=== PATIENT | female | born 1955 | race Caucasian/White ===

== ENCOUNTER 2024-03-16 14:53 | Outpatient (AMB) | payer MEDICARE, SELFPAY ==
--- NOTE | 2024-03-16 14:58 | A.OFFPC_ITS ---
Vital Signs 03/16/24 15:09 Height 5 ft 2.28 in Weight 135 lb 8 oz BMI 24.6 BP 114/70 Blood Pressure Location Lt brachial Position Sitting Pulse Source Pulse Oximeter Temp 97.9 F Temp Source Oral Pulse Oximetry (%) 94 Oxygen Delivery Method Room Air Intake Visit Reasons: Establish Care transfer from [facility] Intake Note: new patient visit Weigh Machine Operator Required: No Allergies No Known Allergies Allergy (Verified 03/16/24 15:02) Medication List - Last Reconciled 03/16/24 by EMANI Garland albuterol sulfate 90 mcg/actuation inhalation ezetimibe 10 mg PO DAILY levocetirizine (Xyzal) 5 mg PO DAILY levothyroxine 75 mcg PO DAILY multivitamin 1 tab PO QAM tiotropium bromide 2.5 mcg/actuation (Spiriva Respimat) 2 puffs inhalation DAILY triamcinolone acetonide (Nasacort) 2 sprays intranasal DAILY Tobacco use date assessed: 03/16/24 Fall risk assessment: 2 + Falls in past year Dental Screening Dental Screen Date: 03/16/24 Did you have a dental visit in the last 12 months?: Yes Did you have a dental problem in the last 6 months where you did not have access to dental care?: No Was dental information given to patient?: Patient has dentist HPI HPI Comments History of Present Illness Details 68-year-old female with a past medical h istory of COPD, hyperlipidemia and hypothyroidism presenting to transfer care from [facility] primary care. She is accompanied by her daughter, Cheyanne. Hypothyroidism treated with levothyroxine 75 mcg once daily. She is compliant. Hyperlipidemia-she stopped taking the statin I prescribed at the last practice. She said atorvastatin caused myalgias, and she was concerned rosuvastatin contributed to a COPD flare. She did not want to take another statin. We had discussed her elevated ASCVD risk score. She was agreeable to trying Zetia. She denies issues on this medication. When I saw the patient on January 27 at [facility] she had a tick bite. She was treated with doxycycline. She did not have lab work there for Lyme screening, and she needs the order placed anew. COPD-she was treated for an exacerbation this year with azithromycin and prednisone. She was diagnosed with COPD [place] She recalls having a pulmonary function test and a low-dose CT scan. Since relocating to [place] she endorses more cough, chest congestion, wheezing and shortness of breath. She has not taken her albuterol very frequently. She has chronic rhinitis which is treated with Xyzal and Nasacort nose spray. She quit smoking 10 years ago. She denies hemoptysis or chest abe n. The patient says she was seen at urgent care 2 weeks ago for burning with urination and pelvic pressure. She was told there were leukocytes in her urine, but the culture was negative. Since then the burning significantly improved. She still has pelvic pressure. She had a large ovarian cyst removed years ago. She does not follow with gynecology. She denies vaginal bleeding and discharge. No vomiting, nausea, syncope. Patient says she has had several times over the past couple of years that she thought she had a UTI because of these symptoms, but she tested negative. Sometimes it feels like her bladder is prolapsing. [facility] Medical History (Updated 03/16/24 @ 16:06 by EMANI Garland) Pelvic pressure in female Chronic rhinitis Snoring COPD (chronic obstructive pulmonary disease) Hypothyroidism Hyperlipidemia Surgical History (Updated 03/16/24 @ 15:11 by Little Cheatham CMA) H/O ovarian cystectomy Family History (Updated 03/16/24 @ 15:14 by Little Cheatham CMA) Father Brain cancer Brother Suicide Sister COPD (chronic obstructive pulmonary disease) Other Memory deficit after nontraumatic subarachnoid hemorrhage Social History Housing: House Patient Tobacco Use Status: Former Tobacco user Tobacco use type: Cigarette Cigarette Packs Per Day: 1 Cigarettes Per Day: 20 Years Smoked: 20 e-Cigarette/Vaping Use: Never Used Second Hand Smoke Exposure: Yes service: No Current occupational status: retired Cognitive needs: No Hearing needs: No Vision needs: No Questionnaire PHQ-9 Over the last 2 weeks, how often have you been bothered by any of the following problems? 1. Little interest or pleasure in doing things: not at all 2. Feeling down, depressed, or hopeless: not at all 3. Trouble falling or staying asleep, or sleeping too much: not at all 4. Feeling tired or having little energy: not at all 5. Poor appetite or overeating: not at all 6. Feeling bad about yourself - or that you are a failure or have let yourself or your family down: not at all 7. Trouble concentrating on things, such as reading the newspaper or watching television: not at all 8. Moving or speaking so slowly that other people could have noticed. Or the opposite - being so fidgety or restless that you have been moving around a lot more than usual: not at all 9. Thoughts that you would be better off or of hurting yourself in some way: not at all Total score: 0 Depression Screening Interpretation: Negative Depression Screening Done: Yes 42285 - PHQ-9 Billing: Yes Source: Developed by Drs. Max Bridges, Tenisha Humphreys, Juan Ramon Moore and colleagues, with an educational zora from [employer]. AUDIT C Alcohol Use Questionnaire (AUDIT-C) 1. How often do you have a drink containing alcohol?: Never 3. How often do you have six or more drinks on one occasion?: Never Total Score: 0 Score Reviewed/Action Taken: No JOHN-7 AMB Questionnaire JOHN-7 Date JOHN - 7 assessed: 03/16/24 Feeling nervous, anxious, or on edge: 0 = Not at all Not being able to stop or control worryin = Not at all Worrying too much about different things: 0 = Not at all Trouble relaxin = Not at all Being so restless that it is hard to sit still: 0 = Not at all Becoming easily annoyed or irritable: 0 = Not at all Feeling afraid as if something awful might happen: 0 = Not at all Total JOHN-7 score (0-4 normal; 5-9 mild; 10-14 moderate; 15-21 severe): 0 Source: Developed by Drs. Max Bridges, Tenisha Humphreys, Juan Ramon Moore and colleagues, with an educational zora from [employer]. JOHN-7 Assessment Billing JOHN-7 Assessment Tool: JOHN-7 Assessment 97281 Physical exam (Primary Care) Vital Signs: Last Vital Signs Temp 97.9 F 03/16/24 15:09 BP 114/70 03/16/24 15:09 Pulse Ox 94 03/16/24 15:09 Oxygen Delivery Method Room Air 03/16/24 15:09 BMI result Body Mass Index 23.0 Tobacco/Smoking Status: Tobacco use Status Tobacco use date assessed 03/16/24 03/16/24 15:12 Patient Tobacco Use Status Former Tobacco user 03/16/24 15:12 Tobacco use type Cigarette 03/16/24 15:12 e-Cigarette/Vaping Use Never Used 03/16/24 15:12 Depression Screening Interpretation: Negative Const Other: Constitutional: Alert, in no distress. Head: Normocephalic. Eyes: Pupils are equal, round and reactive to light. Extraocular muscles intact. Ear, Nose and Throat: Canals clear. TMs normal. No nasal discharge. No oral lesions. Neck: Supple, Full range of motion. No lymphadenopathy. Respiratory: Clear to auscultation. Cardiovascular: S1 S2 regular. No murmurs. Gastrointestinal: Abdomen soft, non-tender, non-distended. Normal bowel sounds. No palpable masses. Genitourinary: No costovertebral angle tenderness. Mild pelvic discomfort with palpation. Extremities: Warm and well perfused. No clubbing, cyanosis or edema. Assessment and Plan Assessment & Plan (1) Hypothyroidism: Code(s): E03.9 - Hypothyroidism, unspecified Qualifiers: Hypothyroidism type: acquired Qualified Code(s): E03.9 - Hypothyroidism, unspecified Plan: Continue levothyroxine. Check TSH. (2) Hyperlipidemia: Code(s): E78.5 - Hyperlipidemia, unspecified Qualifiers: Hyperlipidemia type: pure hypercholesterolemia Qualified Code(s): E78.00 - Pure hypercholesterolemia, unspecified Plan: She did not tolerate statins though reaction to rosuvastatin is questionable. She did not want to attempt another statin. She will continue Zetia. Check lipid profile. Recommended the Mediterranean diet. (3) COPD (chronic obstructive pulmonary disease): Code(s): J44.9 - Chronic obstructive pulmonary disease, unspecified Plan: Referred to pulmonology. Chest CT ordered. Continue albuterol as needed. Start Spiriva 2 inhalations daily. (4) Pelvic pressure in female: Code(s): R10.2 - Pelvic and perineal pain Plan: Ordered pelvic ultrasound. Referred to Gynecology. They will call Dr. Palmer's office today. Warning signs warranting ER evaluation reviewed. Orders: Orders 2 Alanine Aminotransferase Today E78.5 - Hyperlipidemia, unspecified Aspartate Amino Transferase Today E78.5 - Hyperlipidemia, unspecified TSH reflex Free T4 Today E03.9 - Hypothyroidism, unspecified US OB pelvic and transvaginal Today R10.2 - Pelvic and perineal pain Lipid Panel Today E78.5 - Hyperlipidemia, unspecified Lyme IgG/IgM w/reflex to WB Today W57.XXXA - Bitten or stung by nonvenomous insect and other nonvenomous arthropods, initial encounter CT chest wo con - High Res Today J44.9 - Chronic obstructive pulmonary disease, unspecified, R05.3 - Chronic cough Referrals LINK TRAINER OPERATOR Referral R10.2 - Pelvic and perineal pain Pulmonology Referral J44.9 - Chronic obstructive pulmonary disease, unspecified Medications: New tiotropium bromide 2.5 mcg/actuation (Spiriva Respimat) 2 puffs inhalation DAILY 4 grams 5RF Coding Level of Care Code Est Pt Level 4 (41949) Complex EM visit Add On G2211 Diagnoses Acquired hypothyroidism E03.9 Hypothyroidism type: acquired Pure hypercholesterolemia E78.00 Hyperlipidemia type: pure hypercholesterolemia COPD (chronic obstructive pulmonary disease) J44.9 Pelvic pressure in female R10.2 Additional Codes JOHN-7 Assessment Billing - JOHN-7 Assessment Tool: JOHN-7 Assessment [id number] ([id number])
[2024-03-16 15:09] VITALS: BP 114/70; TEMP 36.6; O2SAT 94; BMI 24.6
== END 2024-03-16 15:52 | disposition home or self-care (01) ==
PROVIDERS: PCP Physician Assistant Medical; Visit Provider Physician Assistant Medical
DX: E03.9 Hypothyroidism, unspecified (principal); E78.00 Pure hypercholesterolemia, unspecified; J44.9 Chronic obstructive pulmonary disease, unspecified; R10.2 Pelvic and perineal pain
CPT/HCPCS: 99214; G2211

== ENCOUNTER 2024-06-11 14:19 | Outpatient (AMB) | payer MEDICARE, SELFPAY ==
--- NOTE | 2024-06-11 14:31 | A.OFFPC_ITS ---
Vital Signs 06/11/24 14:34 Height 5 ft 2.25 in Weight 135 lb 4 oz BMI 24.5 BP 108/70 Blood Pressure Location Rt brachial Position Sitting Pulse 76 Pulse Source Pulse Oximeter Pulse Oximetry (%) 96 Oxygen Delivery Method Room Air Intake Visit Reasons: med review/annual Intake Note: Patient is here for her annual exam. Patient reports she has had testing completed- labs, lung scan and ultrasound at [facility]. Patient is accompanied by her daughter today who reports she has stomach concerns as well. Electronic Prepress System Operator Required: No Accompanied by: Daughter Allergies No Known Allergies Allergy (Verified 06/11/24 14:40) Tobacco use date assessed: 03/16/24 Fall risk assessment: 1 Fall in past year Last assessed Fall Risk: 06/11/24 Dental Screening Dental Screen Date: 03/16/24 HPI HPI Comments History of Present Illness Details 68-year-old female with a past medical h istory of COPD, hyperlipidemia and hypothyroidism presents for annual physical. She is accompanied by her daughter, Diana, for part of the visit. Hypothyroidism treated with levothyroxine 75 mcg once daily. She is compliant. Hyperlipidemia-she stopped taking the statin I prescribed at the last practice. She said atorvastatin caused myalgias, and she was concerned rosuvastatin contributed to a COPD flare. She did not want to take another statin. We had discussed her elevated ASCVD risk score. She is on Zetia. She had labs done externally that we reviewed previously. COPD-she was treated for an exacerbation this year with azithromycin and prednisone. She was diagnosed with COPD [place]. She is not taking Incruse. She does not like the powder formulation, and she took it for a few weeks and did not feel a difference. She has not taken her albuterol very frequently. She has chronic rhinitis which is treated with Xyzal and Nasacort nose spray. She quit smoking 10 years ago. She denies hemoptysis or chest pain. She has an appointnent with Dr. Duckworth at the end of the month. She has centrilobar emphysema on CT scan at [facility] (I reviewed the report on her daughter's phone). It showed 0.3 cm nodule in the right lower lobe. CT at 12 months recommeneded in high-risk individual. She saw Urogynecology. She was diagnosed with bladder and uterine prolapse. She declined pessary and surgery. She's GI symptoms for years. She has intermittent diarrhea. Patient says she was not on medication for IBS that was a powder, she thinks it was cholestyramine, and it helped. She saw gastroenterology. She had a colonosocpy, and it was reportedly normal. She will not have it again. She brought up Cologuard, but I explained this is not a diagnostic test. She gets cramping which is relieved immediately after BMs. This has happened a few times within the past few months. Denies blood in stools, weight loss, vomiting. Gets mammogram every 4 years if she feels like it. Declines bone density. ROS: Constitutional: No unexplained weight loss, fever, chills, fatigue or night sweats. Eyes: No vision changes, blurry vision, double vision, eye pain, eye redness, eye discharge. ENT: No hearing loss, ear pain, sore throat or sinus pain. Respiratory: No increased cough, increased shortness of breath or increased sputum production. Cardiovascular: No chest pain, chest pressure or chest discomfort. No palpitations or pedal edema. Gastrointestinal: No anorexia, nausea, vomiting or blood in stool. See HPI. Genitourinary: No dysuria, hematuria, urinary frequency. Neurologic: No headache, dizziness, syncope, unilateral weakness, ataxia, numbness or tingling in the extremities. Musculoskeletal: She gets occasional pain in her right knee and her left hip which she attributes to arthritis. She takes Aleve or Tylenol as needed. Hematologic/Lymphatics: No bleeding or bruising. No painful lymph nodes. Skin: No rash Endocrine: No cold or heat intolerance. No polyuria or polydipsia. Psychiatric: No depression or anxiety. No SI/HI. Physical exam: Constitutional: Alert, in no distress. Head: Normocephalic. Eyes: Pupils are equal, round and reactive to light. Extraocular muscles intact. Ear, Nose and Throat: Canals clear. TMs normal. Normal nasal mucosa. No nasal di scharge. No oral lesions. Neck: Supple, Full range of motion. No lymphadenopathy. No palpable thyroid masses. Respiratory: Clear to auscultation. Cardiovascular: S1 S2 regular. No murmurs. Gastrointestinal: Abdomen soft, non-tender, non-distended. Normal bowel sounds. No palpable masses. Neurologic: No focal neurological deficits. Symmetric patellar reflexes. Moves all extremities spontaneously. Sensation intact bilaterally. Skin: No rashes Musculoskeletal: No gross deformities. Normal range of motion. Extremities: Warm and well perfused. No clubbing, cyanosis or edema. 3+ peripheral pulses bilaterally. Psychiatric: Normal mood and affect [facility] Medical History (Updated 06/12/24 @ 10:04 by EMANI Garland) Routine physical examination Uterine prolapse Female bladder prolapse Pulmonary nodule IBS (irritable bowel syndrome) Pelvic pressure in female Chronic rhinitis Snoring COPD (chronic obstructive pulmonary disease) Hypothyroidism Hyperlipidemia Surgical History (Updated 03/16/24 @ 15:11 by Little Cheatham CMA) H/O ovarian cystectomy Family History (Updated 03/16/24 @ 15:14 by Little Cheatham CMA) Father Brain cancer Brother Suicide Sister COPD (chronic obstructive pulmonary disease) Other Memory deficit after nontraumatic subarachnoid hemorrhage Social History Housing: House Patient Tobacco Use Status: Former Tobacco user Tobacco use type: Cigarette Cigarette Packs Per Day: 1 Cigarettes Per Day: 20 Years Smoked: 20 e-Cigarette/Vaping Use: Never Used Second Hand Smoke Exposure: Yes service: No Current occupational status: retired Cognitive needs: No Hearing needs: No Vision needs: No Questionnaire PHQ-9 Over the last 2 weeks, how often have you been bothered by any of the following problems? 1. Little interest or pleasure in doing things: not at all 2. Feeling down, depressed, or hopeless: not at all 3. Trouble falling or staying asleep, or sleeping too much: not at all 4. Feeling tired or having little energy: not at all 5. Poor appetite or overeating: not at all 6. Feeling bad about yourself - or that you are a failure or have let yourself or your family down: not at all 7. Trouble concentrating on things, such as reading the newspaper or watching television: not at all 8. Moving or speaking so slowly that other people could have noticed. Or the opposite - being so fidgety or restless that you have been moving around a lot more than usual: not at all 9. Thoughts that you would be better off or of hurting yourself in some way: not at all Total score: 0 Depression Screening Interpretation: Negative Depression Screening Done: Yes 56453 - PHQ-9 Billing: Yes Source: Developed by Drs. Max Bridges, Tenisha Humphresy, Juan Ramon Moore and colleagues, with an educational zora from [employer]. Thrive Questionnaire Date Thrive assessed: 06/11/24 I am a: Patient What is your living situation today?: I have a steady place to live Within the past 12 months, did the food you bought not last and you didn't have the money to get more?: Never true Within the past 12 months, did you worry whether your food would run out before you got money to buy more?: Never true Do you have trouble paying for medicines?: No Do you have trouble getting transportation to medical appointments?: No Do you have trouble paying your heating and electricity bill?: No Do you have trouble taking care of your child, family member or friend?: No Do you have trouble with day-to-day activities such as bathing, preparing meals, shopping, managing finances, etc.?: No Are you currently unemployed and looking for a job?: No Are you interested in more education?: No Please select the resources that you would like help with: None Currently or been in a relationship where the following occur: No concerns reported THRIVE Score: 0 JOHN-7 AMB Questionnaire JOHN-7 Date JOHN - 7 assessed: 06/11/24 Feeling nervous, anxious, or on edge: 0 = Not at all Not being able to stop or control worryin = Not at all Worrying too much about different things: 0 = Not at all Trouble relaxin = Not at all Being so restless that it is hard to sit still: 0 = Not at all Becoming easily annoyed or irritable: 0 = Not at all Feeling afraid as if something awful might happen: 0 = Not at all Total JOHN-7 score (0-4 normal; 5-9 mild; 10-14 moderate; 15-21 severe): 0 Source: Developed by Drs. Max Bridges, Tenisha Humphreys, Juan Ramon Moore and colleagues, with an educational zora from [employer]. JOHN-7 Assessment Billing JOHN-7 Assessment Tool: JOHN-7 Assessment [id number] Physical exam (Primary Care) Vital Signs: Last Vital Signs Pulse 76 06/11/24 14:34 BP 108/70 06/11/24 14:34 Pulse Ox 96 06/11/24 14:34 Oxygen Delivery Method Room Air 06/11/24 14:34 BMI result Body Mass Index 24.5 Tobacco/Smoking Status: Tobacco use Status Tobacco use date assessed 03/16/24 06/11/24 14:33 Patient Tobacco Use Status Former Tobacco user 06/11/24 14:33 Tobacco use type Cigarette 06/11/24 14:33 e-Cigarette/Vaping Use Never Used 06/11/24 14:33 PHQ-9: PHQ-9 Score PHQ-9: Total score 0 06/11/24 15:28 Depression Screening Interpretation: Negative Thrive Assessment: Date of Thrive Assessment Date Thrive assessed 06/11/24 06/11/24 15:28 Currently or been in a relationship where the following occur: No concerns reported Assessment and Plan Assessment & Plan (1) Routine physical examination: Code(s): Z00.00 - Encounter for general adult medical examination without abnormal findings Plan: Patient is seen today for a routine physical. As part of this visit we reviewed the following issues, which are considered and essential part of preventative health in this age group: - Breast Cancer screening - Annual Flame Burner exam - Screening for colon cancer - Blood pressure screening - Cholesterol screening - Osteoporosis prevention including calcium/vitamin D intake, weight bearing exercise & smoking cessation - Nutritional and exercise counseling - Counseling of injury prevention including fire prevention, smoke alarms and seat belt usage - Screening for depression - Education about skin cancer - Recommendations about immunizations - patient is going to the pharmacy for flu vaccine, COVID vaccine and pneumonia vaccine. She received RSV vaccine last year. - Recommendation of an eye exam - Screening for substance abuse (2) Hypothyroidism: Code(s): E03.9 - Hypothyroidism, unspecified Qualifiers: Hypothyroidism type: acquired Qualified Code(s): E03.9 - Hypothyroidism, unspecified Plan: Continue levothyroxine. (3) Hyperlipidemia: Code(s): E78.5 - Hyperlipidemia, unspecified Qualifiers: Hyperlipidemia type: pure hypercholesterolemia Qualified Code(s): E78.00 - Pure hypercholesterolemia, unspecified Plan: She did not tolerate statins though reaction to rosuvastatin is questionable. She did not want to attempt another statin. She will continue Zetia. Recommended the Mediterranean diet. (4) COPD (chronic obstructive pulmonary disease): Code(s): J44.9 - Chronic obstructive pulmonary disease, unspecified Plan: Insurance did not cover Spiriva. She says Incruse did not help. She has an appointment later this month with pulmonology so I will defer to them about additional medications to be prescribed. Continue albuterol as needed which she does not use frequently. (5) Pulmonary nodule: Code(s): R91.1 - Solitary pulmonary nodule Plan: Repeat CT scan in 1 year. Order placed. (6) IBS (irritable bowel syndrome): Code(s): K58.9 - Irritable bowel syndrome without diarrhea Qualifiers: Irritable bowel syndrome type: with diarrhea Qualified Code(s): K58.0 - Irritable bowel syndrome with diarrhea Plan: I recommended seeing Gastroenterology for follow up especially since she does not know when her last colonoscopy was done. She declined. States she will not have another colonoscopy. Send prescription for colestipol 1 mg twice daily as needed for diarrhea to try. Side effects reviewed. Plan Follow up in 6 months. Medications: New colestipol 1 g PO BID 90 days PRN 180 tabs 0RF diarrhea Coding Level of Care Code Est Pt Prev Care >65y(86124) Diagnoses Routine physical examination Z00.00 Acquired hypothyroidism E03.9 Hypothyroidism type: acquired Pure hypercholesterolemia E78.00 Hyperlipidemia type: pure hypercholesterolemia COPD (chronic obstructive pulmonary disease) J44.9 Pulmonary nodule R91.1 Irritable bowel syndrome with diarrhea K58.0 Irritable bowel syndrome type: with diarrhea Additional Codes JOHN-7 Assessment Billing - JOHN-7 Assessment Tool: JOHN-7 Assessment [id number] ([id number])
[2024-06-11 14:34] VITALS: BP 108/70; PULSE 76; O2SAT 96; BMI 24.5
== END 2024-06-11 15:22 | disposition home or self-care (01) ==
PROVIDERS: PCP Physician Assistant Medical; Visit Provider Physician Assistant Medical
DX: Z00.00 Encounter for general adult medical examination without abnormal findings (principal); J44.9 Chronic obstructive pulmonary disease, unspecified; E03.9 Hypothyroidism, unspecified; E78.00 Pure hypercholesterolemia, unspecified; R91.1 Solitary pulmonary nodule; K58.0 Irritable bowel syndrome with diarrhea
CPT/HCPCS: 99397

== ENCOUNTER 2025-06-28 15:11 | Outpatient (AMB) | payer MEDICARE, SELFPAY ==
--- NOTE | 2025-06-28 15:18 | A.OFFPC_ITS ---
Vital Signs 06/28/25 15:26 Height 5 ft 3 in Weight 134 lb 4 oz BMI 23.8 BP 116/70 Blood Pressure Location Lt brachial Position Sitting Respiration 15 Pulse 75 Pulse Source Pulse Oximeter Temp 98.5 F Temp Source Temporal Artery Scan Pulse Oximetry (%) 95 Oxygen Delivery Method Room Air Intake Visit Reasons: dyspnea on exertion Intake Note: Debra presents in the office today for shortness of breath on exertion. Allergies Seasonal Allergies Allergy (Verified 06/28/25 15:23) Nose runny smoke Allergy (Uncoded 06/28/25 15:23) SOB Tobacco use date assessed: 06/28/25 Fall risk assessment: 1 Fall in past year Last assessed Fall Risk: 06/28/25 Dental Screening Dental Screen Date: 06/28/25 Did you have a dental visit in the last 12 months?: Yes Did you have a dental problem in the last 6 months where you did not have access to dental care?: No Was dental information given to patient?: Patient has dentist HPI HPI Comments History of Present Illness Details 69-year-old female with a past medical h istory of COPD, hyperlipidemia and hypothyroidism presents for evaluation of dyspnea on exertion and a physical exam. She is accompanied by her daughter, Diana. Hypothyroidism treated with levothyroxine 75 mcg once daily. She is compliant. Hyperlipidemia-she stopped taking the statin I prescribed at the last practice. She said atorvastatin caused myalgias, and she was concerned rosuvastatin contributed to a COPD flare. She did not want to take another statin. We had discussed her elevated ASCVD risk score. She is on Zetia. She continues to endorse generalized body aches. COPD/emphysema, pulmonary nodules- Followed by Dr. Duckworth. She was diagnosed with COPD [place] She quit smoking 11 years ago. Insurance does not cover Spiriva. She did not tolerate the dry powder medication Incruse. Arnuity was prescribed, but she she says it did not work. Upon further questioning she has never taken maintenance inhalers on a daily basis. She has been using albuterol as a preventative medication or not taking anything at all. She has chronic rhinitis which is treated with Xyzal and Nasacort nose spray. She is not taking Nasacort. She has chronic dyspnea on exertion and chronic coughing with chest congestion. The patient had a CT of the chest without contrast at [facility] [place] on 05/27/2025. There was evidence of moderate emphysema and atelectasis or scarring. 3 mm nodule in the right lower lobe appeared stable, and there were no new pulmonary nodules. There was a left lower lobe granuloma. CT scan in 12 months was recommended. Moderate coronary artery calcifications and mild vascular calcification of the aorta were noted but no aneurysm. She denies chest pain. Her daughter would like her to see her senior treasury analyst, Dr. Casillas. She does get acid reflux which is completely alleviated by Tums. I sent a prescription for Pepcid. Symptoms are not associated with exertion. Punctuate calcifications in the right breast were also detected. She is overdue for mammogram. She does not get them regularly. At her last visit she told me that she gets them ?every 4 years if she feels like it. ? Denies breast pain or palpable lumps. 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 She saw Urogynecology. She was diagnosed with bladder and uterine prolapse. She declined pessary and surgery. She uses colestipol as needed for diarrhea. She has a history of IBS. She has seen Gastroenterology and had a colonoscopy which was reportedly normal. She refuses colon cancer screening. Denies blood in her stools, weight loss or vomiting. Gets mammogram every 4 years Declines bone density. ROS: Constitutional: No unexplained weight loss, fever, chills or night sweats. Eyes: No vision changes, blurry vision, double vision, eye pain. ENT: No hearing loss, ear pain, sore throat or sinus pain. Respiratory: See HPI. No hemoptysis. No increased sputum production. Cardiovascular: No chest pain, chest pressure or pedal edema. Gastrointestinal: No blood in stool, vomiting, abdominal pain or anorexia. See HPI. Genitourinary: No dysuria, hematuria, urinary frequency. Neurologic: No headache, dizziness, syncope, unilateral weakness, ataxia, numbness or tingling in the extremities. Musculoskeletal: See HPI Hematologic/Lymphatics: No bleeding or bruising. No painful lymph nodes. Skin: No rash Endocrine: No cold or heat intolerance. No polyuria or polydipsia. Psychiatric: No depression or anxiety. Physical exam: Constitutional: Alert, in no distress. Eyes: Pupils are equal, round and reactive to light. Extraocular muscles intact. Ear, Nose and Throat: Canals clear. TMs normal. Normal nasal mucosa. No nasal discharge. No oral lesions. Neck: Supple, Full range of motion. No lymphadenopathy. No palpable thyroid masses. Respiratory: Clear to auscultation. Cardiovascular: S1 S2 regular. No murmurs. Gastrointestinal: Abdomen soft, non-tender, non-distended. Normal bowel sounds. No palpable masses. Neurologic: No focal neurological deficits. Symmetric patellar reflexes. Moves all extremities spontaneously. Sensation intact bilaterally. Skin: No rashes Musculoskeletal: No visible deformity or joint swelling. Extremities: Warm and well perfused. No clubbing, cyanosis or edema. Intact peripheral pulses. Psychiatric: Normal mood and affect [facility] Medical History (Updated 06/29/25 @ 16:56 by EMANI Garland) Allergic rhinitis Breast calcifications Body aches Myalgia Coronary artery calcification Palpitations Fatigue Routine physical examination Uterine prolapse Female bladder prolapse Pulmonary nodule IBS (irritable bowel syndrome) Pelvic pressure in female Chronic rhinitis Snoring COPD (chronic obstructive pulmonary disease) Hypothyroidism Hyperlipidemia Surgical History (Updated 03/16/24 @ 15:11 by Little Cheatham CMA) H/O ovarian cystectomy Family History Father Brain cancer Brother Suicide Sister COPD (chronic obstructive pulmonary disease) Other Memory deficit after nontraumatic subarachnoid hemorrhage Social History (Updated 06/28/25 @ 15:25 by Mikala Pina CMA) Housing: House Alcohol intake: never Patient Tobacco Use Status: Former Tobacco user Tobacco use type: Cigarette Cigarette Packs Per Day: 1 Cigarettes Per Day: 20 Years Smoked: 20 e-Cigarette/Vaping Use: Never Used Second Hand Smoke Exposure: Yes service: No Current occupational status: retired Current occupational exposures/hazards: No Cognitive needs: No Hearing needs: No Vision needs: No Questionnaire PHQ-9 Over the last 2 weeks, how often have you been bothered by any of the following problems? 1. Little interest or pleasure in doing things: not at all 2. Feeling down, depressed, or hopeless: not at all 3. Trouble falling or staying asleep, or sleeping too much: not at all 4. Feeling tired or having little energy: several days 5. Poor appetite or overeating: not at all 6. Feeling bad about yourself - or that you are a failure or have let yourself or your family down: not at all 7. Trouble concentrating on things, such as reading the newspaper or watching television: not at all 8. Moving or speaking so slowly that other people could have noticed. Or the opposite - being so fidgety or restless that you have been moving around a lot more than usual: not at all 9. Thoughts that you would be better off or of hurting yourself in some way: not at all Total score: 1 Depression Screening Interpretation: Negative Depression Screening Done: Yes 19293 - PHQ-9 Billing: Yes Source: Developed by Drs. Max Bridges, Tenisha Humphreys, Juan Ramon Moore and colleagues, with an educational zora from [employer]. Thrive Questionnaire Date Thrive assessed: 06/28/25 I am a: Patient What is your living situation today?: I have a steady place to live Within the past 12 months, did the food you bought not last and you didn't have the money to get more?: Never true Within the past 12 months, did you worry whether your food would run out before you got money to buy more?: Never true Do you have trouble paying for medicines?: No Do you have trouble getting transportation to medical appointments?: No Do you have trouble paying your heating and electricity bill?: No Do you have trouble taking care of your child, family member or friend?: No Do you have trouble with day-to-day activities such as bathing, preparing meals, shopping, managing finances, etc.?: No Are you currently unemployed and looking for a job?: No Are you interested in more education?: No Please select the resources that you would like help with: None Currently or been in a relationship where the following occur: No concerns reported THRIVE Score: 0 AUDIT C Alcohol Use Questionnaire (AUDIT-C) 1. How often do you have a drink containing alcohol?: Never 2. How many drinks containing alcohol do you have on a typical day when you are drinking?: 1 or 2 3. How often do you have six or more drinks on one occasion?: Never Total Score: 0 JOHN-7 AMB Questionnaire JOHN-7 Date JOHN - 7 assessed: 06/28/25 Feeling nervous, anxious, or on edge: 0 = Not at all Not being able to stop or control worryin = Not at all Worrying too much about different things: 0 = Not at all Trouble relaxin = Not at all Being so restless that it is hard to sit still: 0 = Not at all Becoming easily annoyed or irritable: 0 = Not at all Feeling afraid as if something awful might happen: 0 = Not at all Total JOHN-7 score (0-4 normal; 5-9 mild; 10-14 moderate; 15-21 severe): 0 Source: Developed by Drs. Max Bridges, Tenisha Humphreys, Juan Ramon Moore and colleagues, with an educational zora from [employer]. JOHN-7 Assessment Billing JOHN-7 Assessment Tool: JOHN-7 Assessment 94404 Physical exam (Primary Care) Vital Signs: Last Vital Signs Temp 98.5 F 06/28/25 15:26 Pulse 75 06/28/25 15:26 Resp 15 06/28/25 15:26 BP 116/70 06/28/25 15:26 Pulse Ox 95 06/28/25 15:26 Oxygen Delivery Method Room Air 06/28/25 15:26 BMI result Body Mass Index 23.8 Tobacco/Smoking Status: Tobacco use Status Tobacco use date assessed 06/28/25 06/28/25 15:28 Patient Tobacco Use Status Former Tobacco user 06/28/25 15:25 Tobacco use type Cigarette 06/28/25 15:25 e-Cigarette/Vaping Use Never Used 06/28/25 15:25 PHQ-9: PHQ-9 Score PHQ-9: Total score 1 06/29/25 09:43 Depression Screening Interpretation: Negative Thrive Assessment: Date of Thrive Assessment Date Thrive assessed 06/28/25 06/28/25 15:28 Currently or been in a relationship where the following occur: No concerns reported Office Procedures EKG Details: EKG shows normal sinus rhythm without ischemic changes. [id number], Complete Coding Level of Care Code Est Pt Level 3 (21762) Est Pt Prev Care >65y(24357) Diagnoses Routine physical examination Z00.00 Pulmonary nodule R91.1 Fatigue R53.83 Body aches R52 Irritable bowel syndrome with diarrhea K58.0 Irritable bowel syndrome type: with diarrhea Acquired hypothyroidism E03.9 Hypothyroidism type: acquired Pure hypercholesterolemia E78.00 Hyperlipidemia type: pure hypercholesterolemia Coronary artery calcification I25.10 COPD (chronic obstructive pulmonary disease) J44.9 Breast calcifications R92.1 Allergic rhinitis J30.9 CPT Codes EKG - CPT: 39189-Fwgfnwartcfzkhzgo, Complete ([id number]) Additional Codes JOHN-7 Assessment Billing - JOHN-7 Assessment Tool: JOHN-7 Assessment 86842 ([id number]) PHQ-9 - 32692 - PHQ-9 Billing: Yes ([id number]) Assessment & Plan Assessment & Plan (1) Routine physical examination: Code(s): Z00.00 - Encounter for general adult medical examination without abnormal findings Category: Medical Plan: Patient is seen today for a routine physical. As part of this visit we reviewed the following issues, which are considered and essential part of preventative health in this age group: - Annual Ladies' Hat Trimmer exam - declined - Screening for colon cancer - Blood pressure screening - Osteoporosis prevention including calcium/vitamin D intake, weight bearing exercise & smoking cessation - Nutritional and exercise counseling - Counseling of injury prevention including fire prevention, smoke alarms and seat belt usage - Education about skin cancer - Recommendations about immunizations - reviewed recommendations. She is planning to get the flu shot and possibly COVID-19 vaccine at the pharmacy. - Recommendation of an eye exam - Screening for substance abuse (2) Pulmonary nodule: Code(s): R91.1 - Solitary pulmonary nodule Category: Medical Plan: Ordered CT scan to be done in 1 year. (3) Fatigue: Code(s): R53.83 - Other fatigue Category: Medical Plan: This is chronic. This is likely multifactorial. Check labs. COPD/emphysema treatment recommended. (4) Body aches: Code(s): R52 - Pain, unspecified Category: Medical Plan: Check labs. She tells me that she actually stopped Zetia for 6 months, and she had no change in the symptoms so this is not related to her medication. (5) IBS (irritable bowel syndrome): Code(s): K58.9 - Irritable bowel syndrome, unspecified Category: Medical Qualifiers: Irritable bowel syndrome type: with diarrhea Qualified Code(s): K58.0 - Irritable bowel syndrome with diarrhea Plan: Continue colestipol as needed. (6) Hypothyroidism: Code(s): E03.9 - Hypothyroidism, unspecified Category: Medical Qualifiers: Hypothyroidism type: acquired Qualified Code(s): E03.9 - Hypothyroidism, unspecified Plan: Continue levothyroxine. Check TSH. (7) Hyperlipidemia: Code(s): E78.5 - Hyperlipidemia, unspecified Category: Medical Qualifiers: Hyperlipidemia type: pure hypercholesterolemia Qualified Code(s): E78.00 - Pure hypercholesterolemia, unspecified (8) Coronary artery calcification: Code(s): I25.10 - Atherosclerotic heart disease of [place] coronary artery without angina pectoris Category: Medical Plan: She adamantly refuses statins. Continue Zetia. Check lipid profile. Mediterranean diet recommended. Referred to Cardiology. (9) COPD (chronic obstructive pulmonary disease): Code(s): J44.9 - Chronic obstructive pulmonary disease, unspecified Category: Medical Plan: I reviewed proper administration of medications. Maintenance medications need to be taken every day. Trial of Symbicort 2 puffs twice daily. Recommended adequate calcium and vitamin-D supplementation. She is on a multivitamin. Gargle and rinse mouth out after use to prevent thrush. We will re-evaluate efficacy after 6 weeks. Continue albuterol 2 puffs every 4 hours as needed. Continue to avoid smoking. Referred back to Dr. Duckworth. (10) Breast calcifications: Code(s): R92.1 - Mammographic calcification found on diagnostic imaging of breast Category: Medical Plan: Mammogram has already been ordered. Patient advised to call [facility] to schedule this. (11) Allergic rhinitis: Code(s): J30.9 - Allergic rhinitis, unspecified Category: Medical Plan: Continue Xyzal. Encouraged compliance with Nasacort. Her eyes have been very itchy. She will try ketotifen eyedrops. Plan She will follow up with me in 2 months. Orders: Orders Vitamin D 25-OH (D2 and D3) 06/28/25 M85.80 - Other specified disorders of bone density and structure, unspecified site Rheumatoid Factor 06/28/25 R53.83 - Other fatigue Rheumatoid Factor Today M79.10 - Myalgia, unspecified site AMB EKG-In Office Today I25.10 - Atherosclerotic heart disease of [place] coronary artery without angina pectoris Creatine Kinase Total 06/28/25 R53.83 - Other fatigue MIKE Reflex Titer and Pattern 06/28/25 R53.83 - Other fatigue Referrals Pulmonology Referral J44.9 - Chronic obstructive pulmonary disease, unspecified, R91.1 - Solitary pulmonary nodule Cardiology Referral I25.10 - Atherosclerotic heart disease of [place] coronary artery without angina pectoris, R53.83 - Other fatigue Medications: New ketotifen fumarate 0.025%(0.035%) (Allergy Eye (ketotifen)) 1 drp ophthalmic (eye) Q12H PRN 5 mL 5RF allergy symptoms budesonide-formoterol 80-4.5 mcg/actuation (Symbicort) 2 puffs inhalation BID 10.2 grams 5RF triamcinolone acetonide 0.1% 1 appl topical BID 30 grams 0RF famotidine (Pepcid AC) 20 mg PO BID 60 tabs 5RF Discontinued fluticasone furoate 100 mcg/actuation (Arnuity Ellipta) Discontinued Reason: Doctor's Order 1 inh inhalation DAILY 30 ea 5RF
[2025-06-28 15:26] VITALS: BP 116/70; PULSE 75; RESP 15; TEMP 36.9; O2SAT 95; BMI 23.8
== END 2025-06-28 16:17 | disposition home or self-care (01) ==
LOC: HO.HMCFM 15:12
PROVIDERS: PCP Physician Assistant Medical; Visit Provider Physician Assistant Medical
DX: Z00.00 Encounter for general adult medical examination without abnormal findings (principal); R91.1 Solitary pulmonary nodule; J44.9 Chronic obstructive pulmonary disease, unspecified; R53.83 Other fatigue; R52 Pain, unspecified; K58.0 Irritable bowel syndrome with diarrhea; E03.9 Hypothyroidism, unspecified; E78.00 Pure hypercholesterolemia, unspecified; I25.10 Atherosclerotic heart disease of native coronary artery without angina pectoris; R92.1 Mammographic calcification found on diagnostic imaging of breast; J30.9 Allergic rhinitis, unspecified

== ENCOUNTER → 2025-06-28 15:11 | Outpatient (BNVA) | payer MEDICARE, SELFPAY | PROVIDERS: PCP Physician Assistant Medical; Visit Provider Physician Assistant Medical | DX: Z00.01 Encounter for general adult medical examination with abnormal findings (principal); R91.1 Solitary pulmonary nodule; R53.83 Other fatigue; R52 Pain, unspecified; K58.0 Irritable bowel syndrome with diarrhea; E03.9 Hypothyroidism, unspecified; E78.00 Pure hypercholesterolemia, unspecified; I25.10 Atherosclerotic heart disease of native coronary artery without angina pectoris; J43.9 Emphysema, unspecified; R92.1 Mammographic calcification found on diagnostic imaging of breast; J30.9 Allergic rhinitis, unspecified; Z79.899 Other long term (current) drug therapy; Z13.31 Encounter for screening for depression; Z13.39 Encounter for screening examination for other mental health and behavioral disorders | CPT/HCPCS: 93005; 96127; 99212; 99397 ==

== ENCOUNTER 2025-09-13 08:17 | Outpatient (AMB) | payer MEDICARE, SELFPAY ==
--- NOTE | 2025-09-13 09:47 | MHC.PC.OV ---
Vital Signs 09/13/25 09:55 Height 5 ft 3 in Weight 139 lb 6 oz BMI 24.7 BP 110/78 Blood Pressure Location Rt brachial Position Sitting Respiration 15 Pulse 78 Pulse Source Pulse Oximeter Temp 97 F Temp Source Temporal Artery Scan Pulse Oximetry (%) 94 Oxygen Delivery Method Room Air Intake Visit Reasons: follow up Intake Note: Debra presents in the office today to follow up to dyspenea on exertion and statins. 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 Is last menstrual period known: No Post menopausal: Yes Patient : No Allergies Seasonal Allergies Allergy (Verified 09/13/25 09:53) Nose runny smoke Allergy (Uncoded 09/13/25 09:53) SOB Tobacco use date assessed: 09/13/25 Fall risk assessment: 1 Fall in past year Last assessed Fall Risk: 09/13/25 Dental Screening Dental Screen Date: 09/13/25 Did you have a dental visit in the last 12 months?: Yes Did you have a dental problem in the last 6 months where you did not have access to dental care?: No Was dental information given to patient?: Patient has dentist HPI HPI Comments History of Present Illness Details 69-year-old female with a past medical history of COPD, hyperlipidemia and hypothyroidism presents for follow up. She is accompanied by her daughter, Diana. Hypothyroidism treated with levothyroxine 75 mcg once daily. Hyperlipidemia-she stopped taking the statin I prescribed at the last practice. She said atorvastatin caused myalgias, and she was concerned rosuvastatin contributed to a COPD flare. She did not want to take another statin. We had discussed her elevated ASCVD risk score and moderate coronary artery calcifications on CT. She has an appointment with Dr. Casillas in 2025. She is on Zetia. She tried stopping this for a few months because she though it was causing joint pain, but it made no difference so she resumed it. She continues to endorse aches and pain and muscle cramping. Endorses pain in neck, lower back and hips but also pain in her ankles, elbows, shoulders and knees. She has a known ligament tear in the right knee. She had a steroid injection with [facility] within the past 6 months. Lyme, MIKE, RF, CBC, vitamin d, mag, CK, b12 normal/negative 06/2025. K was mildly elevated. She stopped a multivitamin, and this normalized. Normal urine/creat ratio. Denies joint swelling. Takes Tylenol as needed which doesn't really help. She is not worried it is due to the steroid in Symbicort she takes for COPD and wants to change it. COPD/emphysema, pulmonary nodules- Followed by Dr. Duckworth. She was diagnosed with COPD [place] She quit smoking 11 years ago. Insurance does not cover Spiriva. She did not tolerate the dry powder medication Incruse. The patient had a CT of the chest without contrast at [facility] on 05/27/2025. There was evidence of moderate emphysema and atelectasis or scarring. 3 mm nodule in the right lower lobe appeared stable, and there were no new pulmonary nodules. There was a left lower lobe granuloma. CT scan in 12 months was recommended. Punctuate calcifications in the right breast were also detected on CT in April. She had a negative mammogram in June. She saw Urogynecology. She was diagnosed with bladder and uterine prolapse. She declined pessary and surgery. She uses colestipol for diarrhea. She has a history of IBS. She has seen Gastroenterology and had a colonoscopy which was reportedly normal. She declines further colon cancer screening. Denies blood in her stools, weight loss or vomiting. Declines bone density. ROS: Constitutional: No unexplained weight loss, fever, chills or night sweats. Respiratory: See HPI. No hemoptysis. No increased sputum production. Cardiovascular: No chest pain, chest pressure or pedal edema. Gastrointestinal: No blood in stool, vomiting, abdominal pain or anorexia. See HPI. Genitourinary: No dysuria, hematuria, urinary frequency. Neurologic: No headache, dizziness, syncope, unilateral weakness, ataxia, numbness or tingling in the extremities. Musculoskeletal: See HPI Hematologic/Lymphatics: No bleeding or bruising. No painful lymph nodes. Skin: No rash Physical exam: Constitutional: Alert, in no distress. Neck: Supple, Full range of motion. No lymphadenopathy. Respiratory: Clear to auscultation. Cardiovascular: S1 S2 regular. No murmurs. Gastrointestinal: Abdomen soft, non-tender, non-distended. Normal bowel sounds. No palpable masses. Neurologic: No focal neurological deficits. Symmetric patellar reflexes. Moves all extremities spontaneously. Sensation intact bilaterally. Skin: No rashes Musculoskeletal: No visible deformity or joint swelling. FROM lumbar spine and cervical spine. No midline tenderness. She has leg pain and hip pain with bilateral straight leg raise. No hip crepitus or tenderness. Extremities: Warm and well perfused. No clubbing, cyanosis or edema. Intact peripheral pulses. Psychiatric: Normal mood and affect [facility] Medical History (Updated 09/13/25 @ 10:36 by EMANI Garland) Bilateral hip pain Lumbar pain Cervicalgia Multiple joint pain Hyperkalemia Allergic rhinitis Breast calcifications Body aches Myalgia Coronary artery calcification Palpitations Fatigue Routine physical examination Uterine prolapse Female bladder prolapse Pulmonary nodule IBS (irritable bowel syndrome) Pelvic pressure in female Chronic rhinitis Snoring COPD (chronic obstructive pulmonary disease) Hypothyroidism Hyperlipidemia Surgical History (Updated 03/16/24 @ 15:11 by Little Cheatham CMA) H/O ovarian cystectomy Family History Father Brain cancer Brother Suicide Sister COPD (chronic obstructive pulmonary disease) Other Memory deficit after nontraumatic subarachnoid hemorrhage Social History (Updated 09/13/25 @ 09:55 by Mikala Pina CMA) Housing: House Alcohol intake: never Patient Tobacco Use Status: Former Tobacco user Tobacco use type: Cigarette Cigarette Packs Per Day: 1 Cigarettes Per Day: 20 Years Smoked: 20 Packs Per Year: 20 Packs per year/per ci.00 e-Cigarette/Vaping Use: Never Used Second Hand Smoke Exposure: Yes Use of substances other than those prescribed or required for medical reasons: No Patient : No service: No Current occupational status: retired Current occupational exposures/hazards: No Cognitive needs: No Hearing needs: No Vision needs: No Questionnaire Thrive Questionnaire Date Thrive assessed: 06/28/25 I am a: Patient What is your living situation today?: I have a steady place to live Within the past 12 months, did the food you bought not last and you didn't have the money to get more?: Never true Within the past 12 months, did you worry whether your food would run out before you got money to buy more?: Never true Do you have trouble paying for medicines?: No Do you have trouble getting transportation to medical appointments?: No Do you have trouble paying your heating and electricity bill?: No Do you have trouble taking care of your child, family member or friend?: No Do you have trouble with day-to-day activities such as bathing, preparing meals, shopping, managing finances, etc.?: No Are you currently unemployed and looking for a job?: No Are you interested in more education?: No Please select the resources that you would like help with: None Currently or been in a relationship where the following occur: No concerns reported THRIVE Score: 0 JOHN-7 AMB Questionnaire JOHN-7 Date JOHN - 7 assessed: 06/28/25 Source: Developed by Drs. Max Bridges, Tenisha Humphreys, Juan Ramon Moore and colleagues, with an educational zora from [employer]. Physical exam (Primary Care) Vital Signs: Last Vital Signs Temp 97 F 09/13/25 09:55 Pulse 78 09/13/25 09:55 Resp 15 09/13/25 09:55 BP 110/78 09/13/25 09:55 Pulse Ox 94 09/13/25 09:55 Oxygen Delivery Method Room Air 09/13/25 09:55 BMI result Body Mass Index 24.7 Tobacco/Smoking Status: Tobacco use Status Tobacco use date assessed 09/13/25 09/13/25 09:59 Patient Tobacco Use Status Former Tobacco user 09/13/25 09:55 Tobacco use type Cigarette 09/13/25 09:55 e-Cigarette/Vaping Use Never Used 09/13/25 09:55 Thrive Assessment: Date of Thrive Assessment Date Thrive assessed 06/28/25 09/13/25 09:47 Currently or been in a relationship where the following occur: No concerns reported Results Reviewed Results Reviewed: [facility] 08/2025 potassium 4.9 creat urine 20.2 albutermin <3 almb/creat <15 mg/g Coding Level of Care Code Est Pt Level 4 (18086) Add On Problem Visit Only Diagnoses Multiple joint pain M25.50 Pulmonary nodule R91.1 Irritable bowel syndrome with diarrhea K58.0 Irritable bowel syndrome type: with diarrhea Acquired hypothyroidism E03.9 Hypothyroidism type: acquired Pure hypercholesterolemia E78.00 Hyperlipidemia type: pure hypercholesterolemia Coronary artery calcification I25.10 Assessment & Plan Assessment & Plan (1) Multiple joint pain: Code(s): M25.50 - Pain in unspecified joint Category: Medical Plan: Lab evaluation not suggestive of infectious cause. CK normal and she tried stopping Zetia without improvement. Check x-rays. She has fatigue. PMR considered, but there are no elevated autoimmune markes thusfar. Referred to rheum for evaluation. Patient thinks this is related to steroid in her inhaler. I told her I don't think this is the case, but she will switch to Combivent since she has concerns. If no improvement in 2 weeks I asked her to reach back so she can try Celebrex. Discussed potential side effects of this medication. (2) Pulmonary nodule: Code(s): R91.1 - Solitary pulmonary nodule Category: Medical Plan: Ordered CT scan to be done in 1 year. (3) IBS (irritable bowel syndrome): Code(s): K58.9 - Irritable bowel syndrome, unspecified Category: Medical Qualifiers: Irritable bowel syndrome type: with diarrhea Qualified Code(s): K58.0 - Irritable bowel syndrome with diarrhea Plan: Continue colestipol as needed. (4) Hypothyroidism: Code(s): E03.9 - Hypothyroidism, unspecified Category: Medical Qualifiers: Hypothyroidism type: acquired Qualified Code(s): E03.9 - Hypothyroidism, unspecified Plan: Continue levothyroxine. (5) Hyperlipidemia: Code(s): E78.5 - Hyperlipidemia, unspecified Category: Medical Qualifiers: Hyperlipidemia type: pure hypercholesterolemia Qualified Code(s): E78.00 - Pure hypercholesterolemia, unspecified (6) Coronary artery calcification: Code(s): I25.10 - Atherosclerotic heart disease of [place] coronary artery without angina pectoris Category: Medical Plan: She adamantly refuses statins. Continue Zetia. Mediterranean diet recommended. She will see Dr. Casillas in 2025. Plan Follow up in 3 months. Orders: Orders XR lumbar spine 2-3V Today M25.551 - Pain in right hip, M25.552 - Pain in left hip, M54.2 - Cervicalgia, M54.50 - Low back pain, unspecified XR cervical spine 4V Today M25.551 - Pain in right hip, M25.552 - Pain in left hip, M54.2 - Cervicalgia, M54.50 - Low back pain, unspecified XR hip BI w PEL1V Today M25.551 - Pain in right hip, M25.552 - Pain in left hip, M54.2 - Cervicalgia, M54.50 - Low back pain, unspecified Referrals Rheumatology Referral M25.50 - Pain in unspecified joint Medications: New ipratropium-albuterol 20-100 mcg/actuation (Combivent Respimat) 1 puff inhalation Q6H PRN 4 grams 5RF shortness of breath or wheezing Discontinued budesonide-formoterol 80-4.5 mcg/actuation (Symbicort) Discontinued Reason: Doctor's Order 2 puffs inhalation BID 10.2 grams 5RF
[2025-09-13 09:55] VITALS: BP 110/78; PULSE 78; RESP 15; TEMP 36.1; O2SAT 94; BMI 24.7
== END 2025-09-13 12:01 | disposition home or self-care (01) ==
LOC: HO.HMCFM 08:18
PROVIDERS: PCP Physician Assistant Medical; Visit Provider Physician Assistant Medical
DX: M25.50 Pain in unspecified joint (principal); R91.1 Solitary pulmonary nodule; K58.0 Irritable bowel syndrome with diarrhea; E03.9 Hypothyroidism, unspecified; E78.00 Pure hypercholesterolemia, unspecified; I25.10 Atherosclerotic heart disease of native coronary artery without angina pectoris

== ENCOUNTER → 2025-09-13 08:17 | Outpatient (BNVA) | payer MEDICARE, SELFPAY | PROVIDERS: PCP Physician Assistant Medical; Visit Provider Physician Assistant Medical | DX: I25.10 Atherosclerotic heart disease of native coronary artery without angina pectoris (principal); R91.1 Solitary pulmonary nodule; K58.0 Irritable bowel syndrome with diarrhea; E03.9 Hypothyroidism, unspecified; E78.00 Pure hypercholesterolemia, unspecified; M25.50 Pain in unspecified joint | CPT/HCPCS: 99212 ==